=== PATIENT | male | born 1990 | race Caucasian/White ===

== ENCOUNTER 2017-08-07 08:49 | Emergency (ER) | payer BC ==
[2017-08-07 09:06] VITALS: BP 131/84
--- NOTE | 2017-08-07 09:47 | EDM.PDOC ---
<Nickie Montelongo - Last Filed: 08/07/17 13:15> ED HPI GENERAL MEDICAL PROBLEM - General Chief Complaint: General Stated Complaint: CHEST PAIN Time Seen by Provider: 08/07/17 09:45 Source of Information: Reports: Patient History Limitations: Reports: No Limitations - History of Present Illness INITIAL COMMENTS - FREE TEXT/NARRATIVE: 27-year-old male presents for evaluation and treatment of chest pain. Reports this plan for the last year. States he gets an episode every couple weeks to few months. Last episode was about 2 nights ago. He describes as a stinging pain. He began concerned when the stinging pain woke him from sleep around 1:30 yesterday morning. States he had trouble falling back asleep and he felt very anxious with this. He does feel like it is likely panic attack. He states when he was having the stinging chest discomfort it felt like it was a heart attack. He reports associated symptoms of diaphoresis and lightheadedness. No shortness breath, nausea, vomiting, syncope or abdominal pain. Patient denies any family history of cardiac problems at a young age. Patient denies any previous heart problems. He does not use any tobacco products. No illicit drug use. Reports he drinks alcohol on occasion. He works as an airplane electrician. Patient is otherwise healthy. Was told in the past he had high blood pressure. Location: Reports: Chest - Related Data Allergies Allergy/AdvReac Type Severity Reaction Status Date / Time No Known Allergies Allergy Verified 08/07/17 09:06 Home Meds: Home Meds LORazepam [Ativan] 0.5 mg PO Q4HR PRN #10 tablet 08/07/17 [Rx] ED ROS GENERAL - Review of Systems Review Of Systems: See Below Constitutional: Reports: Diaphoresis Respiratory: Denies: Shortness of Breath Cardiovascular: Reports: Chest Pain, Lightheadedness. Denies: Syncope GI/Abdominal: Denies: Abdominal Pain, Nausea, Vomiting Neurological: Denies: Syncope ED EXAM, GENERAL - Physical Exam Exam: See Below Exam Limited By: No Limitations General Appearance: Alert, WD/WN, No Apparent Distress Eye Exam: Bilateral Eye: Normal Inspection Ears: Normal External Exam Nose: Normal Inspection Throat/Mouth: Normal Inspection, Normal Voice, No Airway Compromise Neck: Normal Inspection Respiratory/Chest: No Respiratory Distress, Lungs Clear, Normal Breath Sounds Cardiovascular: Normal Peripheral Pulses, Regular Rate, Rhythm, No Murmur Neurological: Alert, Oriented, Normal Cognition Psychiatric: Normal Affect, Normal Mood Skin Exam: Warm, Dry, Normal Color EKG INTERPRETATION EKG Date: 08/07/17 Time: 09:50 Rhythm: NSR Rate (Beats/Min): 67 [place]: Normal P-Wave: Present QRS: Normal ST-T: Normal QT: Normal EKG Interpretation Comments: NSR at 67 bpm. No acute changes. Reviewed by myself and Dr. Crawley. Course - Vital Signs Last Recorded V/S: Last Vital Signs Temp 36.7 C 08/07/17 09:03 Pulse 67 08/07/17 09:03 Resp 18 08/07/17 09:03 BP 131/84 08/07/17 09:03 Pulse Ox 98 08/07/17 09:03 - Orders/Labs/Meds Orders: Active Orders 24 hr Category Date Time Status EKG Documentation Completion [RC] STAT Care 08/07/17 09:46 Active Labs: Laboratory Tests 08/07/17 08/07/17 Range/Units 11:29 11:29 WBC 3.51 L (4.23-9.07) K/mm3 RBC 4.59 L (4.63-6.08) M/mm3 Hgb 13.9 (13.7-17.5) gm/L Hct 41.4 (40.1-51.0) % MCV 90.2 (79.0-92.2) fl MCH 30.3 (25.7-32.2) pg MCHC 33.6 (32.2-35.5) g/dl RDW Std Deviation 41.9 (35.1-43.9) fL Plt Count 216 (163-337) K/mm3 MPV 9.3 L (9.4-12.3) fl Neut % (Auto) 51.2 (34.0-67.9) % Lymph % (Auto) 36.8 (21.8-53.1) % [place] % (Auto) 11.1 (5.3-12.2) % Eos % (Auto) 0.6 L (0.8-7.0) Baso % (Auto) 0.3 (0.1-1.2) % Neut # (Auto) 1.80 (1.78-5.38) K/mm3 Lymph # (Auto) 1.29 L (1.32-3.57) K/mm3 [place] # (Auto) 0.39 (0.30-0.82) K/mm3 Eos # (Auto) 0.02 L (0.04-0.54) K/mm3 Baso # (Auto) 0.01 (0.01-0.08) K/mm3 Sodium 141 (136-145) mEq/L Potassium 4.1 (3.5-5.1) mEq/L Chloride 108 H (98-107) mEq/L Carbon Dioxide 26 (21-32) mEq/L Anion Gap 11.1 (5-15) BUN 15 (7-18) mg/dL Creatinine 0.9 (0.7-1.3) mg/dL Est Cr Clr Drug Dosing 131.31 mL/min Estimated GFR (MDRD) > 60 (>60) mL/min BUN/Creatinine Ratio 16.7 (14-18) Glucose 122 H (74-106) mg/dL Calcium 8.9 (8.5-10.1) mg/dL Total Bilirubin 0.5 (0.2-1.0) mg/dL AST 20 (15-37) U/L ALT 28 (16-63) U/L Alkaline Phosphatase 84 (46-116) U/L Troponin I < 0.017 (0.00-0.056) ng/mL Total Protein 7.0 (6.4-8.2) g/dl Albumin 4.1 (3.4-5.0) g/dl Globulin 2.9 gm/dL Albumin/Globulin Ratio 1.4 (1-2) TSH 3rd Generation 1.018 (0.358-3.74) uIU/mL - Radiology Interpretation Free Text/Narrative:: Chest: Two views of the chest were obtained. Comparison: No prior study. Heart size and mediastinum are normal. Lungs are clear. Slight scoliosis is present within the spine. Impression: 1. Nothing acute is identified on two-view chest x-ray. - Re-Assessments/Exams Free Text/Narrative Re-Assessment/Exam: 08/07/17 12:23 I reviewed the labs, imaging and ekg. with the patient. This is likely panic attacks causing his symptoms. We will try him on a short course of Ativan to see if this improves his symptoms. Follow-up with family medicine. Discharge instructions as documented. Departure - Departure Time of Disposition: 12:36 Disposition: Home, Self-Care 01 Condition: Fair Clinical Impression: Panic attack - Discharge Information Prescriptions: LORazepam [Ativan] 0.5 mg PO Q4HR PRN #10 tablet PRN Reason: Anxiety Instructions: Panic Attacks, [id number] Referrals: PCP,None [Primary Care Provider] - Lashawn Lebron [Physician] - Forms: ED Department Discharge Additional Instructions: Take Ativan 1 tab every 4-6 hours as needed for panic attacks. This medication may make you drowsy. Do not drive or operate machinery within 8 hours of taking this medication Follow-up with family medicine within 2-3 weeks for recheck. Recommend Edgar Juarez or Dr. Hassan at the [facility]. Call [phone] to schedule with on of these providers. Please return to the ER if your symptoms change or worsen. - My Orders Last 24 Hours: My Active Orders 08/07/17 09:46 EKG Documentation Completion [RC] STAT - Assessment/Plan Last 24 Hours: My Active Orders 08/07/17 09:46 EKG Documentation Completion [RC] STAT <Baldev Crawley - Last Filed: 08/07/17 19:03> ED HPI GENERAL MEDICAL PROBLEM - General Source of Information: Reports: Patient History Limitations: Reports: No Limitations Past Medical History - Past Health History Medical/Surgical History: Denies Medical/Surgical History Musculoskeletal History: Reports: Other (See Below) Other Musculoskeletal History: right wrsit fracture, multiple left wrist fractures - Past Surgical History HEENT Surgical History: Reports: Oral Surgery GI Surgical History: Reports: Appendectomy Social & Family History - Tobacco Use Smoking Status *Q: Never Smoker Second Hand Smoke Exposure: No - Caffeine Use Caffeine Use: Reports: Coffee - Recreational Drug Use Recreational Drug Use: No Course - Orders/Labs/Meds Orders: Active Orders 24 hr Category Date Time Status EKG Documentation Completion [RC] STAT Care 08/07/17 09:46 Active Labs: Laboratory Tests 08/07/17 08/07/17 Range/Units 11:29 11:29 WBC 3.51 L (4.23-9.07) K/mm3 RBC 4.59 L (4.63-6.08) M/mm3 Hgb 13.9 (13.7-17.5) gm/L Hct 41.4 (40.1-51.0) % MCV 90.2 (79.0-92.2) fl MCH 30.3 (25.7-32.2) pg MCHC 33.6 (32.2-35.5) g/dl RDW Std Deviation 41.9 (35.1-43.9) fL Plt Count 216 (163-337) K/mm3 MPV 9.3 L (9.4-12.3) fl Neut % (Auto) 51.2 (34.0-67.9) % Lymph % (Auto) 36.8 (21.8-53.1) % [place] % (Auto) 11.1 (5.3-12.2) % Eos % (Auto) 0.6 L (0.8-7.0) Baso % (Auto) 0.3 (0.1-1.2) % Neut # (Auto) 1.80 (1.78-5.38) K/mm3 Lymph # (Auto) 1.29 L (1.32-3.57) K/mm3 [place] # (Auto) 0.39 (0.30-0.82) K/mm3 Eos # (Auto) 0.02 L (0.04-0.54) K/mm3 Baso # (Auto) 0.01 (0.01-0.08) K/mm3 Sodium 141 (136-145) mEq/L Potassium 4.1 (3.5-5.1) mEq/L Chloride 108 H (98-107) mEq/L Carbon Dioxide 26 (21-32) mEq/L Anion Gap 11.1 (5-15) BUN 15 (7-18) mg/dL Creatinine 0.9 (0.7-1.3) mg/dL Est Cr Clr Drug Dosing 131.31 mL/min Estimated GFR (MDRD) > 60 (>60) mL/min BUN/Creatinine Ratio 16.7 (14-18) Glucose 122 H (74-106) mg/dL Calcium 8.9 (8.5-10.1) mg/dL Total Bilirubin 0.5 (0.2-1.0) mg/dL AST 20 (15-37) U/L ALT 28 (16-63) U/L Alkaline Phosphatase 84 (46-116) U/L Troponin I < 0.017 (0.00-0.056) ng/mL Total Protein 7.0 (6.4-8.2) g/dl Albumin 4.1 (3.4-5.0) g/dl Globulin 2.9 gm/dL Albumin/Globulin Ratio 1.4 (1-2) TSH 3rd Generation 1.018 (0.358-3.74) uIU/mL - My Orders Last 24 Hours: My Active Orders 08/07/17 09:46 EKG Documentation Completion [RC] STAT - Assessment/Plan Last 24 Hours: My Active Orders 08/07/17 09:46 EKG Documentation Completion [RC] STAT
--- NOTE | 2017-08-07 11:07 | CR ---
Chest: Two views of the chest were obtained. Comparison: No prior study. Heart size and mediastinum are normal. Lungs are clear. Slight scoliosis is present within the spine. Impression: 1. Nothing acute is identified on two-view chest x-ray. Diagnostic code #1
== END 2017-08-07 12:55 | disposition home or self-care (01) ==
LOC: JD.ED 08:49
DX: F41.0 Panic disorder [episodic paroxysmal anxiety] (principal)
CPT/HCPCS: 36415; 71046; 71046-26; 80053; 84443; 84484; 85025; 93005; 99285-25

== ENCOUNTER 2017-12-13 10:02 | Emergency (ER) | payer BC ==
[2017-12-13 10:22] VITALS: BP 136/77
--- NOTE | 2017-12-13 11:29 | EDM.PDOC ---
ED HPI GENERAL MEDICAL PROBLEM - General Chief Complaint: Skin Complaint Stated Complaint: BUMP ON LEFT SIDE OF HEAD AND HEADACHE Time Seen by Provider: 12/13/17 10:21 Source of Information: Reports: Patient History Limitations: Reports: No Limitations - History of Present Illness INITIAL COMMENTS - FREE TEXT/NARRATIVE: The patient presents with a lump to the back of his head. That started a few days ago. He went to the walk in clinic at [place] yesterday and they felt it was an infection with lymphadenopathy and put him on an antibiotic. The pain is worse today. He has no fever or chills. He has no vision changes. He has no numbness or weakness. He has no chest pain, shortness of breath, abdominal pain, nausea or vomiting. He did not injury that area in any way. Onset: Gradual Duration: Day(s): Location: Reports: Head Quality: Reports: Sharp Severity: Severe Improves with: Reports: Immobilization Worsens with: Reports: Movement Context: Reports: Other (No) Associated Symptoms: Reports: Headaches. Denies: Chest Pain, Cough, Fever/ Chills, Nausea/Vomiting, Shortness of Breath Head Pain Score (Numeric/FACES): 4 - Related Data Allergies Allergy/AdvReac Type Severity Reaction Status Date / Time No Known Allergies Allergy Verified 12/13/17 10:22 Home Meds: Home Meds Hydrocodone/Acetaminophen [Hydrocodon-Acetaminophen 5-325] 1 - 2 each PO Q6HR PRN #20 tablet 12/13/17 [Rx] Past Medical History - Past Health History Medical/Surgical History: Denies Medical/Surgical History Musculoskeletal History: Reports: Other (See Below) Other Musculoskeletal History: right wrsit fracture, multiple left wrist fractures - Past Surgical History HEENT Surgical History: Reports: Oral Surgery GI Surgical History: Reports: Appendectomy Social & Family History - Tobacco Use Smoking Status *Q: Unknown Ever Smoked - Caffeine Use Caffeine Use: Reports: Coffee ED ROS GENERAL - Review of Systems Review Of Systems: See Below Constitutional: Reports: No Symptoms HEENT: Reports: No Symptoms Respiratory: Reports: No Symptoms Cardiovascular: Reports: No Symptoms Endocrine: Reports: No Symptoms GI/Abdominal: Reports: No Symptoms : Reports: No Symptoms Musculoskeletal: Reports: No Symptoms Skin: Reports: No Symptoms Neurological: Reports: Headache ED EXAM, SKIN/RASH Exam: See Below Exam Limited By: No Limitations General Appearance: Alert, No Apparent Distress Ears: Normal External Exam Nose: Normal Inspection Throat/Mouth: Normal Inspection Head: Other (Edema to the left side of the occipital area with edema. There is an area of erythema just medial to that area.) Neck: Normal Inspection, Supple, Non-Tender Respiratory/Chest: No Respiratory Distress, Lungs Clear, Normal Breath Sounds Cardiovascular: Regular Rate, Rhythm, No Edema, No Murmur GI/Abdominal: Soft, Non-Tender, No Organomegaly, No Mass Extremities: Normal Inspection Neurological: Alert, Oriented, No Motor/Sensory Deficits Course - Vital Signs Last Recorded V/S: Last Vital Signs Temp 98.1 F 12/13/17 10:19 Pulse 70 12/13/17 10:19 Resp 20 12/13/17 10:19 BP 136/77 12/13/17 10:19 Pulse Ox 98 12/13/17 10:19 - Orders/Labs/Meds Orders: Active Orders 24 hr Category Date Time Status Head wo Cont [CT] Stat Exams 12/13/17 10:25 Taken - Re-Assessments/Exams Free Text/Narrative Re-Assessment/Exam: 12/13/17 11:[address] of his head and it shows mild inflammatory changes left skull base and upper neck. No evidence for bony abnormality. Asymmetric soft tissue attenuation, uncertain etiology. It appears there is just an infection but no abscess or anything more serious. I will keep him on the antibiotics and give him something for pain. Departure - Departure Time of Disposition: 11:45 Disposition: Home, Self-Care 01 Condition: Good Clinical Impression: Cellulitis of scalp - Discharge Information Prescriptions: Hydrocodone/Acetaminophen [Hydrocodon-Acetaminophen 5-325] 1 - 2 each PO Q6HR PRN #20 tablet PRN Reason: Pain Referrals: PCP,None [Primary Care Provider] - Aleida Fisher, [employer] [Nurse Practitioner] - 1 Week Forms: ED Department Discharge Additional Instructions: Take the antibiotic as prescribed. Put a warm compress on the affected area 2 to 3 times per day. Take motrin or tylenol for pain. If that does not help, you can take some hydrocodone. Follow up with Aleida Fisher next week if you are not better. [place] return if you are worse. - My Orders Last 24 Hours: My Active Orders 12/13/17 10:25 Head wo Cont [CT] Stat - Assessment/Plan Last 24 Hours: My Active Orders 12/13/17 10:25 Head wo Cont [CT] Stat
--- NOTE | 2017-12-15 08:55 | CT ---
Head CT Technique: Multiple axial sections through the brain were obtained. Intravenous contrast was not utilized. Comparison: No prior intracranial imaging. Findings: Ventricles along with basal cisterns and sulci over the convexities are within normal limits. No abnormal parenchymal densities are seen. No evidence of intracranial hemorrhage. No midline shift or mass effect is seen. Bone window settings were reviewed which show no acute calvarial abnormality. Paranasal sinuses are clear. Minimal soft tissue densities are seen posterior to the occipital bone. No involvement of calvarium is seen. These findings are nonspecific but most likely incidental. Impression: 1. Minimal soft tissue densities posterior to the occipital bone which are nonspecific but most likely incidental. 2. Noncontrast head CT study is otherwise unremarkable. Diagnostic code #2 I agree with preliminary report issued by [facility] ([facility] preliminary report dictated on 12/13/17, 12:25 PM Central Time)
== END 2017-12-13 11:58 | disposition home or self-care (01) ==
LOC: JD.ED 10:02
DX: L03.811 Cellulitis of head [any part, except face] (principal)
CPT/HCPCS: 70450; 70450-26; 99283; 99284-25

== ENCOUNTER 2022-08-03 19:22 | Emergency (ER) | payer SELFPAY ==
[2022-08-03] MEDS ORDERED: Loperamide 2 MG Cap PO STA (20:23)
[2022-08-03] MEDS ORDERED: Sodium Chloride 0.9% 1,000 ML IV ONE ×2 (20:23→21:45)
[2022-08-03] MEDS ORDERED: Ondansetron 4 MG/2 ML SDV IVPUSH ONE (20:23)
[2022-08-03] MEDS ORDERED: LORazepam 2 MG/ML SDV IVPUSH STA (20:23)
[2022-08-03 20:41] LABS: ESTIMATED GFR 103 mL/min (>60)
[2022-08-04 01:50] VITALS: BP 113/72; PULSE 120
== END 2022-08-04 01:45 | disposition home or self-care (01) ==
LOC: JD.ED 19:22
DX: A08.4 Viral intestinal infection, unspecified (principal); E83.42 Hypomagnesemia; R73.9 Hyperglycemia, unspecified; Z86.16 Personal history of COVID-19
CPT/HCPCS: 36415; 80053; 83690; 83735; 85007; 85027; 86140; 96361; 96374; 96375; 99284; A9270; J2060; J2405; J7030; 99283

== ENCOUNTER 2024-01-13 17:13 | Observation (INO) | payer BC ==
[2024-01-13] MEDS ORDERED: Naloxone 0.4 MG/ML SDV IVPUSH PRN ×6 (18:10→20:28)
[2024-01-13] MEDS: Ondansetron 4 MG/2 ML SDV IVPUSH ONE (18:15)
[2024-01-13] MEDS: fentaNYL 100 MCG/2 ML SDV IVPUSH ONE ×2 (18:17→18:32)
[2024-01-13] MEDS: Sodium Chloride 0.9% 1,000 ML IV SCH ×3 (18:20→22:56)
[2024-01-13 18:28] LABS: BASOPHILS PERCENT AUTO 0.2 % (0.0-1.0); EOSINOPHILS PERCENT AUTO 0.1 % (0.0-6.0); HEMATOCRIT 46.7 % (42.0-52.0); HEMOGLOBIN 15.8 gm/dl (14.0-18.0); IMMATURE GRAN ABSOLUTE AUTO 0.04 K/mm3 (0.00-0.05); IMMATURE GRAN PERCENT AUTO 0.5 % (0.0-0.4); LYMPHOCYTES ABSOLUTE AUTO 1.4 K/mm3 (1.0-4.8); LYMPHOCYTES PERCENT AUTO 15.9 % (24.0-44.0); MEAN CORPUSCULAR HEMOGLOBIN 31.5 pg (28.0-32.0); MEAN CORPUSCULAR HGB CONC 33.8 g/dl (32.0-36.0); MEAN PLATELET VOLUME 8.8 fl (9.4-12.4); MONOCYTES ABSOLUTE AUTO 0.6 K/mm3 (0.0-0.8); MONOCYTES PERCENT AUTO 7.2 % (0.0-8.0); NEUTROPHILS ABSOLUTE AUTO 6.5 K/mm3 (1.8-7.7); NEUTROPHILS PERCENT AUTO 76.1 % (41.0-71.0); PLATELET COUNT,PLT 273 K/mm3 (150-400); RED BLOOD CELL COUNT 5.02 M/mm3 (4.52-5.90); WHITE BLOOD CELL COUNT,WBC 8.51 K/mm3 (3.9-11.3)
[2024-01-13] MEDS: Ketorolac 30 MG/ML SDV IVPUSH ONE (18:32)
[2024-01-13 18:37] LABS: A/G RATIO 1.2 (1-2); ALBUMIN 4.3 g/dl (3.4-5.0); ANION GAP 13.5 (5-15); BILIRUBIN TOTAL 0.6 mg/dL (0.2-1.0); BUN/CREATININE RATIO 8.8 (14-18); CALCIUM 9.7 mg/dL (8.5-10.1); CREATININE 1.6 mg/dL (0.7-1.3); EST CRCL DRUG DOSING (CG) 69.94 mL/min; POTASSIUM,K 3.5 mEq/L (3.5-5.1); PROTEIN TOTAL,TP 7.8 g/dl (6.4-8.2)
[2024-01-13] MEDS: HYDROmorphone 1 MG/ML Syringe IVPUSH ONE ×3 (18:43→20:50)
[2024-01-13] MEDS: Sodium Chloride 0.9% 10 ML Syringe FLUSH ONE (19:13)
[2024-01-13] MEDS: Iopamidol 612 MG/ML 100 ML Bottle IVPUSH ONE (19:13)
[2024-01-13 19:45] LABS: APPEARANCE,URINE CLOUDY (Clear); BILIRUBIN,URINE NEGATIVE (Negative); COLOR,URINE YELLOW (Yellow); GLUCOSE,URINE NEGATIVE (Negative); KETONES,URINE NEGATIVE (Negative); LEUKOCYTE ESTERASE,URINE NEGATIVE (Negative); NITRITE,URINE NEGATIVE (Negative); OCCULT BLOOD,URINE 2+ (Negative); PH,URINE 7.5 (5.0-8.0); PROTEIN,URINE NEGATIVE (Negative); UROBILINOGEN,URINE 0.2 (0.2-1.0)
[2024-01-13 19:58] LABS: AMORPHOUS SEDIMENT,URINE FEW /hpf (NOT SEEN); BACTERIA,URINE FEW /hpf (FEW); MUCUS,URINE NOT SEEN /hpf (FEW); RBC,URINE >100 /hpf (0-5); SQUAMOUS EPITHELIAL CELLS,UR NOT SEEN /hpf (0-5); WBC,URINE 0-5 /hpf (0-5)
[2024-01-13 20:17] LABS: LACTIC ACID 0.7 mmol/L (0.4-2.0)
[2024-01-13] MEDS ORDERED: Acetaminophen 325 MG Tab PO PRN (20:27)
[2024-01-13] MEDS: Tamsulosin 0.4 MG Cap.ER PO ONE (20:50)
[2024-01-13] MEDS: Tamsulosin 0.4 MG Cap.ER PO SCH (20:51)
[2024-01-13] MEDS: oxyCODONE 5 MG Tab PO PRN (22:43)
[2024-01-14] MEDS: Morphine 2 MG/ML SYRINGE IVPUSH PRN (02:38)
[2024-01-14 08:01] VITALS: BP 116/69; PULSE 82
[2024-01-14] MEDS: Enoxaparin 40 MG/0.4 ML Syringe SUBCUT SCH (08:09)
== END 2024-01-14 08:20 | disposition home or self-care (01) ==
LOC: JD.ED 17:13 → JD.MS 20:25
PROVIDERS: ADMIT Family Medicine; ATTEND Family Medicine
DX: N13.2 Hydronephrosis with renal and ureteral calculous obstruction (principal); N17.9 Acute kidney failure, unspecified; Z79.899 Other long term (current) drug therapy
CPT/HCPCS: 36415; 74177; 74177-26; 80053; 81001; 83605; 85025; 96361; 96374; 96375; 96376; 99285-25; A9270-GY; J1170; J1885; J2270; J2405; J3010; J3490; J7030; Q9967

== ENCOUNTER 2024-02-14 23:51 | Emergency (ER) | payer BC ==
[2024-02-14] MEDS ORDERED: Sodium Chloride 0.9% 10 ML Syringe FLUSH PRN (23:55)
[2024-02-15 00:22] VITALS: BP 167/109; PULSE 105
[2024-02-15 00:53] LABS: BASOPHILS PERCENT AUTO 0.2 % (0.0-1.0); HEMATOCRIT 42.6 % (42.0-52.0); HEMOGLOBIN 14.6 gm/dl (14.0-18.0); IMMATURE GRAN ABSOLUTE AUTO 0.06 K/mm3 (0.00-0.05); IMMATURE GRAN PERCENT AUTO 0.6 % (0.0-0.4); LYMPHOCYTES ABSOLUTE AUTO 0.9 K/mm3 (1.0-4.8); LYMPHOCYTES PERCENT AUTO 8.6 % (24.0-44.0); MEAN CORPUSCULAR HEMOGLOBIN 31.4 pg (28.0-32.0); MEAN CORPUSCULAR HGB CONC 34.3 g/dl (32.0-36.0); MEAN CORPUSCULAR VOLUME 91.6 fl (83.0-99.0); MEAN PLATELET VOLUME 8.6 fl (9.4-12.4); MONOCYTES ABSOLUTE AUTO 0.5 K/mm3 (0.0-0.8); MONOCYTES PERCENT AUTO 5.3 % (0.0-8.0); NEUTROPHILS ABSOLUTE AUTO 8.5 K/mm3 (1.8-7.7); NEUTROPHILS PERCENT AUTO 85.3 % (41.0-71.0); PLATELET COUNT,PLT 171 K/mm3 (150-400); RED BLOOD CELL COUNT 4.65 M/mm3 (4.52-5.90); WHITE BLOOD CELL COUNT,WBC 9.93 K/mm3 (3.9-11.3)
[2024-02-15 00:54] LABS: APPEARANCE,URINE SLT CLOUDY (Clear); BILIRUBIN,URINE NEGATIVE (Negative); COLOR,URINE YELLOW (Yellow); GLUCOSE,URINE TRACE (Negative); KETONES,URINE NEGATIVE (Negative); LEUKOCYTE ESTERASE,URINE NEGATIVE (Negative); NITRITE,URINE NEGATIVE (Negative); OCCULT BLOOD,URINE 2+ (Negative); PROTEIN,URINE TRACE (Negative); UROBILINOGEN,URINE 0.2 (0.2-1.0)
[2024-02-15 01:06] LABS: BACTERIA,URINE FEW /hpf (FEW); EPITHELIAL CELLS,URINE NOT SEEN /hpf (0-5); MUCUS,URINE MODERATE /hpf (FEW); RBC,URINE 75-100 /hpf (0-5); WBC,URINE 0-5 /hpf (0-5)
[2024-02-15 01:13] LABS: A/G RATIO 1.4 (1-2); ALBUMIN 4.3 g/dl (3.4-5.0); ANION GAP 17.3 (5-15); BILIRUBIN TOTAL 0.4 mg/dL (0.2-1.0); BUN/CREATININE RATIO 12.1 (14-18); C-REACTIVE PROTEIN 0.08 mg/dL (<0.30); CALCIUM 8.1 mg/dL (8.5-10.1); CREATININE 1.4 mg/dL (0.7-1.3); EST CRCL DRUG DOSING (CG) 79.18 mL/min; MAGNESIUM 1.9 mg/dL (1.8-2.4); POTASSIUM,K 3.3 mEq/L (3.5-5.1); PROTEIN TOTAL,TP 7.4 g/dl (6.4-8.2)
[2024-02-15] MEDS: Ketorolac 30 MG/ML SDV IVPUSH ONE (01:50)
[2024-02-15 02:11] LABS: BARBITURATE SCREEN,URINE NEGATIVE (CUTOFF=200); BENZODIAZEPINES SCREEN,URINE NEGATIVE (CUTOFF=150); BUPRENORPHINE SCREEN,URINE NEGATIVE (CUTOFF=10); METHADONE SCREEN, URINE NEGATIVE (CUT0FF=200); METHAMPHETAMINES SCREEN, URINE NEGATIVE (CUTOFF=500); OXYCODONE SCREEN,URINE NEGATIVE (CUT0FF=100); THC SCREEN,URINE 20 NG/ML NEGATIVE (CUTOFF=50)
[2024-02-15 02:17] LABS: AMPHETAMINES SCREEN, URINE PRESUMPTIVE POSITIVE (CUTOFF=500)
== END 2024-02-15 02:45 | disposition home or self-care (01) ==
LOC: JD.ED 23:51
DX: N20.1 Calculus of ureter (principal); Z86.16 Personal history of COVID-19; Z79.899 Other long term (current) drug therapy
CPT/HCPCS: 36415; 74176; 80053; 80306; 80307; 81001; 83735; 85025; 86140; 96374; 99284; J1885

== ENCOUNTER 2024-03-08 14:25 | Emergency (ER) | payer BC ==
[2024-03-08] MEDS ORDERED: Naloxone 0.4 MG/ML SDV IVPUSH PRN (15:24)
[2024-03-08] MEDS: Sodium Chloride 0.9% 1,000 ML IV SCH (15:30)
[2024-03-08] MEDS: fentaNYL 100 MCG/2 ML SDV IVPUSH ONE (15:35)
[2024-03-08 15:47] LABS: BASOPHILS PERCENT AUTO 0.4 % (0.0-1.0); EOSINOPHILS PERCENT AUTO 0.2 % (0.0-6.0); HEMATOCRIT 42.9 % (42.0-52.0); HEMOGLOBIN 14.3 gm/dl (14.0-18.0); IMMATURE GRAN ABSOLUTE AUTO 0.02 K/mm3 (0.00-0.05); IMMATURE GRAN PERCENT AUTO 0.4 % (0.0-0.4); LYMPHOCYTES PERCENT AUTO 18.9 % (24.0-44.0); MEAN CORPUSCULAR HGB CONC 33.3 g/dl (32.0-36.0); MEAN CORPUSCULAR VOLUME 93.1 fl (83.0-99.0); MEAN PLATELET VOLUME 8.8 fl (9.4-12.4); MONOCYTES ABSOLUTE AUTO 0.4 K/mm3 (0.0-0.8); NEUTROPHILS ABSOLUTE AUTO 3.9 K/mm3 (1.8-7.7); NEUTROPHILS PERCENT AUTO 72.1 % (41.0-71.0); PLATELET COUNT,PLT 202 K/mm3 (150-400); RED BLOOD CELL COUNT 4.61 M/mm3 (4.52-5.90); WHITE BLOOD CELL COUNT,WBC 5.39 K/mm3 (3.9-11.3)
[2024-03-08 16:18] LABS: APPEARANCE,URINE CLEAR (Clear); BILIRUBIN,URINE NEGATIVE (Negative); COLOR,URINE YELLOW (Yellow); GLUCOSE,URINE TRACE (Negative); KETONES,URINE NEGATIVE (Negative); LEUKOCYTE ESTERASE,URINE NEGATIVE (Negative); NITRITE,URINE NEGATIVE (Negative); OCCULT BLOOD,URINE 3+ (Negative); PROTEIN,URINE 1+ (Negative); UROBILINOGEN,URINE 0.2 (0.2-1.0)
[2024-03-08 16:26] LABS: A/G RATIO 1.3 (1-2); ALBUMIN 4.1 g/dl (3.4-5.0); ANION GAP 12.6 (5-15); BILIRUBIN TOTAL 0.4 mg/dL (0.2-1.0); CALCIUM 9.2 mg/dL (8.5-10.1); EST CRCL DRUG DOSING (CG) 114.24 mL/min; POTASSIUM,K 3.6 mEq/L (3.5-5.1); PROTEIN TOTAL,TP 7.2 g/dl (6.4-8.2)
[2024-03-08 16:28] LABS: LACTIC ACID 0.6 mmol/L (0.4-2.0)
[2024-03-08 16:37] LABS: BACTERIA,URINE FEW /hpf (FEW); MUCUS,URINE MODERATE /hpf (FEW); RBC,URINE 50-75 /hpf (0-5); SQUAMOUS EPITHELIAL CELLS,UR 0-5 /hpf (0-5); WBC,URINE 0-5 /hpf (0-5)
[2024-03-08] MEDS: Tamsulosin 0.4 MG Cap.ER PO ONE (18:52)
[2024-03-08 21:51] VITALS: BP 148/89; PULSE 96
== END 2024-03-08 18:55 | disposition home or self-care (01) ==
LOC: JD.ED 14:25
DX: N13.2 Hydronephrosis with renal and ureteral calculous obstruction (principal); Z79.899 Other long term (current) drug therapy; Z86.16 Personal history of COVID-19
CPT/HCPCS: 36415; 74176; 80053; 81001; 83605; 85025; 96361; 96374; 99284; A9270; J3010; J7030

== ENCOUNTER 2024-03-13 20:25 | Emergency (ER) | payer BC ==
[2024-03-13 21:28] LABS: BASOPHILS PERCENT AUTO 0.1 % (0.0-1.0); EOSINOPHILS PERCENT AUTO 0.1 % (0.0-6.0); HEMATOCRIT 42.1 % (42.0-52.0); HEMOGLOBIN 14.4 gm/dl (14.0-18.0); IMMATURE GRAN ABSOLUTE AUTO 0.03 K/mm3 (0.00-0.05); IMMATURE GRAN PERCENT AUTO 0.4 % (0.0-0.4); LYMPHOCYTES ABSOLUTE AUTO 1.2 K/mm3 (1.0-4.8); LYMPHOCYTES PERCENT AUTO 15.5 % (24.0-44.0); MEAN CORPUSCULAR HEMOGLOBIN 31.9 pg (28.0-32.0); MEAN CORPUSCULAR HGB CONC 34.2 g/dl (32.0-36.0); MEAN CORPUSCULAR VOLUME 93.1 fl (83.0-99.0); MEAN PLATELET VOLUME 8.6 fl (9.4-12.4); MONOCYTES ABSOLUTE AUTO 0.7 K/mm3 (0.0-0.8); MONOCYTES PERCENT AUTO 8.4 % (0.0-8.0); NEUTROPHILS PERCENT AUTO 75.5 % (41.0-71.0); PLATELET COUNT,PLT 177 K/mm3 (150-400); RED BLOOD CELL COUNT 4.52 M/mm3 (4.52-5.90)
[2024-03-13 21:30] LABS: APPEARANCE,URINE SLT CLOUDY (Clear); BILIRUBIN,URINE NEGATIVE (Negative); COLOR,URINE YELLOW (Yellow); GLUCOSE,URINE NEGATIVE (Negative); KETONES,URINE TRACE (Negative); LEUKOCYTE ESTERASE,URINE NEGATIVE (Negative); NITRITE,URINE NEGATIVE (Negative); OCCULT BLOOD,URINE 2+ (Negative); PROTEIN,URINE NEGATIVE (Negative); UROBILINOGEN,URINE 0.2 (0.2-1.0)
[2024-03-13] MEDS: Ketorolac 30 MG/ML SDV IVPUSH ONE (21:35)
[2024-03-13] MEDS: HYDROmorphone 0.5 MG/0.5 ML Syringe IVPUSH ONE (21:35)
[2024-03-13] MEDS: Sodium Chloride 0.9% 10 ML Syringe FLUSH PRN (21:36)
[2024-03-13] MEDS: Sodium Chloride 0.9% 1,000 ML IV STA (21:36)
[2024-03-13 21:37] LABS: AMORPHOUS SEDIMENT,URINE MODERATE /hpf (NOT SEEN); BACTERIA,URINE FEW /hpf (FEW); EPITHELIAL CELLS,URINE NOT SEEN /hpf (0-5); MUCUS,URINE MODERATE /hpf (FEW); RBC,URINE 30-40 /hpf (0-5); WBC,URINE 0-5 /hpf (0-5)
[2024-03-13 21:55] LABS: A/G RATIO 1.3 (1-2); ANION GAP 14.7 (5-15); BILIRUBIN TOTAL 0.3 mg/dL (0.2-1.0); BUN/CREATININE RATIO 13.8 (14-18); CALCIUM 9.5 mg/dL (8.5-10.1); CREATININE 1.3 mg/dL (0.7-1.3); EST CRCL DRUG DOSING (CG) 87.88 mL/min; POTASSIUM,K 3.7 mEq/L (3.5-5.1); PROTEIN TOTAL,TP 7.1 g/dl (6.4-8.2)
[2024-03-13] MEDS: Acetaminophen/oxyCODONE 325-5 MG Tab PO ONE (22:39)
[2024-03-13 23:47] VITALS: BP 127/71; PULSE 98
== END 2024-03-13 22:47 | disposition home or self-care (01) ==
LOC: JD.ED 20:25
DX: N20.2 Calculus of kidney with calculus of ureter (principal); Z79.899 Other long term (current) drug therapy; Z86.16 Personal history of COVID-19
CPT/HCPCS: 36415; 80053; 81001; 85025; 96374; 96375; 99284; A9270; J1170; J1885; J3490; J7030; 99283